=== PATIENT | female | born 1965 | race Caucasian/White ===

== ENCOUNTER 2025-08-04 19:54 | Inpatient (IN) | payer MEDICAID ==
[~2025-08-04] VITALS: Ht 160 cm; Wt 71.8 kg
--- NOTE | 2025-08-04 22:52 | Physician Documentation ---
History of Present Illness ~ Chief Complaint: Bloody Stools Stated Complaint: GI BLEED Time Seen by MD: 22:52 Primary Medical Doctor: ANUP AKINS Mode of Arrival: EMS HPI Patient presents to the emergency room as transfer from [facility]. Reports of melena and hematemesis over the past few days. Patient was found to be significant lead anemic at sending facility therefore 1 unit of blood transfused. No additional bleeding has been appreciated. Patient is not on bl ood thinners. CT scan of the abdomen performed at sending facility was negative for intra-abdominal bleeding however it did show ascites. According to patient this is new onset. Patient drinks heavily. Reports her last drink was five days ago. No signs of withdrawal. Medication Reconciliation Allergies: Coded Allergies: No Known Allergies (Unverified , 08/04/25) Review of Systems ROS All review of systems negative except as per HPI Physical Exam Vital Signs: Temperature: 98.3, Source: Oral, Heart Rate: 81, Respiratory Rate: 16, BP: 167/84, Pulse Oximetry: 98, Weight: 71.820 Oxygen Flow Rate: 1.0 Physical Exam General: Patient is awake, alert, oriented x4 in no acute distress Head: Normocephalic and atraumatic. Eyes: Conjunctival normal. EOMI. PERRL. ENT: Mucous membranes moist. Neck: Supple, trachea is midline. Chest: Clear to auscultation bilaterally without rales, rhonchi, or wheezes. There is no accessory muscle use or retractions. Cardiac: RRR without murmurs, gallops, or rubs. Abd: Soft, positive distention with positive fluid wave and diffuse tenderness to palpation without peritonitis Progress Results/Orders Results/Orders Orders - ROBERTO COLINDRES MD Cbc/Diff (08/04/25 22:52) BMP (08/04/25 22:52) PTT (08/04/25 22:52) Pt Inr (08/04/25 22:52) Type And Screen (08/04/25 22:52) Electrocardiogram (08/04/25 22:52) Nothing By Mouth (08/05/25 Breakfast) Monitor (08/04/25 22:52) Saline Lock (08/04/25 22:52) Completed Orders - ROBERTO COLINDRES MD Urinalysis, Cult If Indicated (08/04/25 22:52) Vital Signs 08/04/25 08/04/25 20:04 20:12 Temp 98.3 Pulse 81 Resp 18 16 B/P (MAP) 167/84 Pulse Ox 98 O2 Flow Rate 1.0 Laboratory Tests Test 08/04/25 20:56 08/04/25 23:07 Urine Specimen Description Cln catch midstream Urine Color Yellow Urine Clarity Clear Urine pH 7.0 Urine Specific [place] <=1.005 Urine Protein Negative Urine Glucose (UA) Negative Urine Ketones Negative Urine Occult Blood Negative Urine Nitrite Negative Urine Bilirubin Negative Urine Urobilinogen 4.0 H Urine Leukocyte Esterase Negative Urine Culture Indicated Not ind Volume Urine Centrifuged 10 ml Urine Comment EKG/XRAY/CT/US/VASC/MRI EKG : Additional Comment EKG interpreted by myself shows time of 2006, rate 80, sinus rhythm, normal axis, no ST changes Medical Decision Making Additional information obtaine: other Findings Patient presents to the emergency room with GI bleed as a transfer. She has received 1 unit of red blood cells. CT scan of abdomen was negative for acute process. We will continue Protonix and consult GI Diff Dx GI Bleed:Consideration: Include: AE fistula, Angiodysplasia, Bleeding diathesis, Blood loss anemia, Carcinoma, Diverticulosis, Diverticulitis, Esophageal varicies, Esophagitis, Gastritis, Gastroenteritis, Inflammatory BD, Al[place] Rosa-Brown syndrome, Meckel's diverticulum, PUD, Other Departure Admitted to Inpatient Unit: yes, to hospitalist Impression: Primary Impression: GI bleed Condition: Guarded Referrals: NO PRIMARY CARE PROVIDER (PCP) Critical Care Note Total Time (mins): 30 Critical Care Note The very real possibility of a deterioration of this patient's condition required the highest level of my preparedness for sudden, emergent intervention. I provided critical care services, which included medication orders, frequent reevaluations of the patient's condition and response to treatment, ordering and reviewing test results, and discussing the case with various consultants. Excludes time spent performing separately billable procedures. The critical care time associated with the care of the patient was 30 minutes not counting procedures Signature Scribe Signature: No scribe Attestation: The note accurately reflects work and decisions made by me.Roberto Colindres MD 08/04/25 23:17 ROBERTO COLINDRES MD Aug 04, 2025 22:52
[2025-08-04 22:59] LABS: LEUKOCYTE ESTERASE ,URINE NEGATIVE (Neg); NITRITES, URINE NEGATIVE (Neg); OCCULT BLOOD,URINE NEGATIVE (Neg)
[2025-08-04 23:04] LABS: UA COLLECTION TYPE CLN CATCH MIDSTREAM
[2025-08-04 23:15] LABS: MEAN PLATELET VOLUME 9.9 FL (7.4-10.4); RED CELL DISTRIBUTION WIDTH 18.4 % (11.5-14.5)
[2025-08-04 23:28] LABS: APTT 33 SECONDS (22-32); INR 1.5 INR
[2025-08-04 23:29] LABS: CREATININE 1.13 MG/DL (0.40-0.90); TOTAL CARBON DIOXIDE 29.0 MMOL/L (24-32); eCRCL 44 ML/MIN; eGFR 49 ML/MIN
[2025-08-04] MEDS ORDERED: dextrose 50%-water 50ml dispensing syringe IV PRN (23:30)
[2025-08-04] MEDS ORDERED: magnesium sulf-water 2g/50mL 50 ML IV PRN (23:30)
[2025-08-04] MEDS ORDERED: ondansetron/PF 4mg/2ml inj IV PRN (23:30)
[2025-08-04] MEDS ORDERED: magnesium sulf-water 4G/100mL 100 ML IV PRN (23:30)
[2025-08-04] MEDS ORDERED: potassium Cl 20 mEq SR tablet PO PRN (23:30)
[2025-08-04] MEDS ORDERED: potassium Cl 40MEQ/1/2NS 520ml 520 ML IV PRN (23:30)
[2025-08-04] MEDS ORDERED: haloperidol lactate 5mg/ml inj IM PRN (23:30)
[2025-08-04] MEDS ORDERED: magnesium Cl slow-release 64mg tablet PO PRN (23:30)
[2025-08-04] MEDS: pantoprazole 40MG/NS 100ML BAG 100 ML IV SCH (23:38)
[2025-08-04] MEDS ORDERED: LOSA-415 PO (23:43)
[2025-08-05] VITALS (21 sets, daily range): BP systolic 89–140; BP diastolic 49–76; PULSE 76–91; RESP 12–20; TEMP 97.8–98.6; O2SAT 90–97
[2025-08-05] MEDS: octreotide inj. 500 MCG in normal saline 100ml IV soln 97.5 ML IV SCH (00:45)
--- NOTE | 2025-08-05 00:54 | HISTORY AND PHYSICAL-Residence ---
History & Physical Providers to CC Resident Creating Document: EMANUEL ELLINGTON RES CC: DEANGELO BUNN MD ~ History of Present Illness Primary Medical Doctor: [facility] Reason for Admit\Complaint: Coffee-ground emesis and black colored stools History of Present Illness 60-year-old female with past medical history of hypertension, alcohol abuse, presented to the ER with chief complaints of coffee-ground emesis and black colored stools for two days. Patient stated two days ago she had multiple episodes of coffee-ground deficits and the 2-3 episodes of black-colored stools. She denies hematochezia/hematemesis. She also noticed abdominal distention for the past one month associated with abdominal discomfort. No history of fever. Never had endoscopy/colonoscopy before. She is also complaining of constipation for the past one day No previous history of hep B/hep C, not on blood thinners, no previous history of any other bleeding episode These complaints patient went to [facility] [place] She received Protonix 80 mg, received 1 unit of blood transfusion for anemia with hemoglobin of 6.7. She is transferred here for GI services Allergies: Coded Allergies: No Known Allergies (Unverified , 08/04/25) Home Medications Home Medications Active Reported Cozaar* (Losartan Potassium) 25 Mg Tablet 1 Tab PO DAILY 30 Days Past Medical History Past Medical History Hypertension Past Surgical History Surgical History Comment None Past Social History Social History Comment Patient drinks four cans of beer syndrome, last alcohol intake was a week ago She was sober for 15 years and then rebounds for alcoholism seven years ago She has smokes one pack of cigarettes a week Denies illicit drug use Independent for ADLs ROS ROS ROS Constitutional: Positive for fatigue increased appetite HEENT: No blurring of the vision, No sore throat, epistaxis, tinnitus Cardiovascular: No chest pain/discomfort, palpitations, syncope. No pedal edema Respiratory: No sob, cough,, hemoptysis Gastrointestinal: History for abdominal pain, coffee-ground emesis, melena, and abdominal distention with jaundice Genitourinary: No frquency, urgency, incontinence, nocturia. No dysuria, hematuria Musculoskeletal: No arthralgia, myalgia Endocrine: No , polydipsia, polyuria. No heat or cold intolerance Neurologic: No headache, vertigo. No weakness, numbness or tingling of extremities Psychiatric: No hallucinations/delusions, no anhedonia, no suicidal ideation\ Hematologic: No bleeding or bruises Reviewed in full. All negative except for pertinent positives in HPI Exam Vitals: Vital Signs Date Time Temp Pulse Resp B/P (MAP) Pulse Ox O2 Delivery O2 Flow Rate FiO2 08/04/25 23:00 82 17 131/73 (92) 93 08/04/25 20:04 98.3 1.0 General: General: Pleasant adult female, AAO x4, appearing pale, not in apparent distress Head: Normocephalic with an atraumatic Eyes: Pupils- 3mm, reacting to light, conjunctiva- icteric Nose and throat: No polyps, septum- normal, no mucosal ulcers Neck: Supple, no lymphadenopathy, no carotid bruit Respiratory: No use of accessory muscles of respiration, decreased bilateral breath sounds in basal areas Cardiac: S1-S2 heard, rythm regular, SM in the aortic area, mitral area Abdomen: Distended, tenderness diffuse, no guarding/rigidity, shifting dullness retirement, engorged veins present, multiple spider nevi present over chest Extremities: no clubbing, no pedal edema, no deformities, peripheral pulses- 2+ Skin: warm and dry, no rash, no purpura Neuro: No focal deficit, gross cranial nerve exam- normal, no tremors Diagnostic Data Last Recorded Lab Results: 08/04/25230608/04/[id number] Diagnostic Data: Laboratory Tests Test 08/04/25 23:07 Prothrombin Time 15.1 SECONDS (9.0-12.0) H INR International Normalized Ratio 1.5 INR Activated Partial Thromboplast Time 33 SECONDS (22-32) H Coagulation Comments Counseling Services Smoking & Tobacco Cessation: 3-10 Minutes (Patient is counseled regarding the harmful effects of smoking including but not limited to [facility] infections, lung cancer, bladder cancer, Symptoms CAT or mMRCExacerbationSmoking statusExposure to other risk factorsInhaler adherence and techniquePhysical activity and exerciseNeed for pulmonary rehabilitationSelf-management skills Breathlessness Written action planNeed for oxygen, NIV, lung volume reduction, palliative approachesVaccinationManagement of comorbiditiesspirometry at least annually) Advance Care Planning Advanced Care plannin - 30 Minutes (Code status is discussed with her and she opted for full code) Additional Plan 60-year-old female with past medical history of hypertension, alcohol abuse, presented to the ER with chief complaints of coffee-ground emesis and black colored stools for two days. For these complaints she went to [facility] at [place], and was diagnosed with cirrhosis with ascites, received IV Protonix 80 mg for GI bleed, 2 g of IV ceftriaxone and received one PRBC transfusion for anemia. Upper GI bleed -differential diagnosis include esophageal varices/alcoholic gastritis/peptic ulcer disease -currently on Protonix at 8 mg/hour, -started on IV octreotide at 50 mics per hour for presumed esophageal varices -we will consult GI in the a.m., monitor for bleeding manifestations and vitals -NPO after 2:00 a.m. Macrocytic anemia s/P 1 PRBC transfusion -H&H 8.3/23.6, MCV-101, RDW 18 -suspect macrocytosis likely secondary to alcohol and increased RDW secondary to iron-deficiency anemia -follow up on iron panel, B12 -due to history of hematemesis, we will do H&H q.6 -plan for PRBC transfusion if hemoglobin is less than seven Cirrhosis- MELD 14, CTP Class C 10 Ascites with portal HTN Unable to exclude SBP -CT abdomen showed hepatomegaly with cirrhosis, moderate ascites -serum bilirubin 2.5, AST/ALT/ALP 158, serum albumin 1.9 -suspect cirrhosis likely secondary to alcohol, -follow up on hepatitis-B and hepatitis-C -plan for diagnostic and therapeutic paracentesis -he does have mild abdominal tenderness with increased WBC of 12.4, empirically started on IV Rocephin 2 g once daily -Plan for lactulose after EGD Hypertension -hold losartan, monitor blood pressures Hypokalemia -potassium 3.3 -potassium replacement per protocol Alcohol abuse -currently no signs of alcohol withdrawal, started on alcohol withdrawal protocol -the patient regarding the harmful effects of home alcohol and she is willing to go for alcohol detox -plan for naltrexone at the time of discharge -substance abuse navigator and social service consultation for further resources like AA Code Status: Full code Line/tube: PIV DVT prophylaxis: SCDs Nutrition: NPO PT: No Prognosis: Guarded Disposition: Continue care in PCU, GI consultation pending Emanuel Ellington MD IM PGY-3 resident Patient was evaluated with the resident using HIPPA compliant AV device Agree with plan as discussed with the resident Deangelo Bunn Date of Service: Aug 05, 2025 Billing Provider: DEANGELO BUNN MD, HARIVARSHA, [facility] Aug 05, 2025 00:54 DEANGELO BUNN MD Aug 05, 2025 02:33
[2025-08-05 00:55] LABS: % IRON SATURATION 35 % (11-46)
[2025-08-05] MEDS: octreotide 100mcg/1 ml ampule SQ ONE (01:10)
[2025-08-05 01:15] LABS: ELLIPTOCYTES 1+; PLATELET ESTIMATE DECREASED
[2025-08-05] MEDS: octreotide 200mcg/ml 5ml vial ONE (02:06)
[2025-08-05] MEDS: CefTRIAXone 2gm/D5W 50ml BAG 50 ML IV SCH (02:19)
[2025-08-05] MEDS: potassium Cl 20 mEq SR tablet PO PRN (03:11)
--- NOTE | 2025-08-05 06:20 | ELECTROCARDIOGRAPH REPORT ---
[facility] Test Date: 2025-08-04 Test Time: 20:07:27 Pat Name: LALA CRAWLEY Department: EMERGENCY ROOM Room: [place] [address] [address] Gender: F Band Booker: ASHWINI : 1965 Requested By: SO CABELLO Order Number: [id number] Reading MD: Dr. KATE Quinonez Measurements Intervals [place] Rate: 80 P: 76 [place]: 155 QRS: 69 QRSD: 114 T: 44 QT: 430 QTc: 497 Interpretive Statements Sinus rhythm Incomplete right bundle branch block Low voltage, precordial leads Borderline prolonged QT interval Electronically Signed On 08-06-2025 16:51:[address] KATE Quinonez Please click the below link to view image of tracing.
[2025-08-05 06:40] LABS: MEAN PLATELET VOLUME 9.6 FL (7.4-10.4); RED CELL DISTRIBUTION WIDTH 18.5 % (11.5-14.5)
[2025-08-05 06:41] LABS: APTT 33 SECONDS (22-32); INR 1.6 INR
[2025-08-05 06:54] LABS: CREATININE 1.25 MG/DL (0.40-0.90); PHOSPHORUS 4.1 MG/DL (2.3-4.5); TOTAL CARBON DIOXIDE 26.0 MMOL/L (24-32); eCRCL 40 ML/MIN; eGFR 44 ML/MIN
[2025-08-05 06:55] LABS: LACTATE DEHYDROGENASE 172 U/L (81-234)
[2025-08-05] MEDS: docusate sod 100mg capsule PO SCH (07:03)
[2025-08-05] MEDS: K and/or MAG REPLACEMENT MC SCH (07:04)
[2025-08-05] MEDS: thiamine 100mg/ml 2ml inj. IV SCH (07:38)
[2025-08-05] MEDS: folic acid 1mg/0.2ml inj IV SCH (07:39)
--- NOTE | 2025-08-05 11:17 | RADIOLOGY REPORT ---
PROCEDURE: ULTRASOUND GUIDED PARACENTESIS HISTORY: 60 Female requiring paracentesis. TECHNIQUE: The risks and benefits of the procedure including but not limited to bleeding, infection and injury to abdominal organs were explained to the patient and written informed consent was obtained. IMPRESSION: small volume ascites.
[2025-08-05] MEDS ORDERED: midazolam 1 mg/ML 2ml injection ONE (11:43)
[2025-08-05] MEDS ORDERED: fentaNYL/PF 50MCG/1 ML 2ML syringe ONE (11:43)
[2025-08-05] MEDS ORDERED: propofol inj 20 ML IV ONE (11:51)
[2025-08-05 13:30] LABS: MEAN PLATELET VOLUME 9.5 FL (7.4-10.4); RED CELL DISTRIBUTION WIDTH 18.8 % (11.5-14.5)
--- NOTE | 2025-08-05 17:32 | PROGRESS NOTE ---
Daily Progress Note Providers to CC ~ Antibiotic Timeout Antibiotic Ordered?: No Subjective No new complaints, patient is seen resting comfortably. Objective Vital Signs Date Time Temp Pulse Resp B/P (MAP) Pulse Ox O2 Delivery O2 Flow Rate FiO2 08/05/25 15:00 98.6 80 14 120/67 (84) 93 Room Air 08/05/25 13:45 1.0 Result Diagram: 08/05/25 1320 08/05/25 0617 Awake alert oriented HEENT normocephalic , atraumatic , EOMI Neck supple, no JVD Chest CTA , No wheezes crackles or rhonchi Heart RRR, Abdomen, soft, tender in left abdomen Extremities no C/C/E Non focal Coagulation Studies Laboratory Tests Test 08/05/25 06:17 Prothrombin Time 15.6 SECONDS (9.0-12.0) H INR International Normalized Ratio 1.6 INR Activated Partial Thromboplast Time 33 SECONDS (22-32) H Coagulation Comments Other Results Medications reviewed Problem\Assessment\Plan 60 year old female presented with history of hypertension, alcohol abuse, presented to the ER with chief complaints of coffee-ground emesis and black colored stools for two days. # GI Bleed : Patient underwent an EGD which showed hypertensive gastropathy. Continue protonix , will DC octreotide # Acute blood loss anemia : Patient went to [facility] and had a Hb of 6.7 and received a unit of PRBC # Cirrhosis Monitor for disease progression # Chronic alcoholism: Monitor for withdrawals. # Anemia : Monitor H/H # HTN : Losartan on hold , continue monitor # Code status : Patient is a full code. Date of Service: Aug 05, 2025 Billing Provider: VARSHA MCKEE MD Common Visit Codes: 28594-[id number] INP/OBS CARE(HIGH) VARSHA MCKEE MD Aug 05, 2025 17:32
[2025-08-05 18:30] LABS: MEAN PLATELET VOLUME 9.7 FL (7.4-10.4); RED CELL DISTRIBUTION WIDTH 18.2 % (11.5-14.5)
[2025-08-05] MEDS: HYDROcodone/acetaminophen 5mg/325mg tablet PO PRN (20:47)
[2025-08-06 02:00] VITALS: BP 122/55; PULSE 67; RESP 16; TEMP 97.8; O2SAT 94
[2025-08-06 04:37] LABS: MEAN PLATELET VOLUME 9.7 FL (7.4-10.4); RED CELL DISTRIBUTION WIDTH 17.9 % (11.5-14.5)
[2025-08-06 04:50] LABS: APTT 34 SECONDS (22-32); INR 1.7 INR
[2025-08-06 04:52] LABS: CREATININE 1.37 MG/DL (0.40-0.90); PHOSPHORUS 3.5 MG/DL (2.3-4.5); TOTAL CARBON DIOXIDE 27.3 MMOL/L (24-32); eCRCL 37 ML/MIN; eGFR 39 ML/MIN
[2025-08-06 06:00] VITALS: BP 132/65; PULSE 91; RESP 22; TEMP 98.2; O2SAT 93
[2025-08-06 08:00] VITALS: RESP 16; O2SAT 94
[2025-08-06 09:13] LABS: HBSAG SCREEN Negative (Negative); HEPATITIS C VIRUS ANTIBODY Non Reactive (Non Reactive)
[2025-08-06 10:45] VITALS: RESP 14; O2SAT 93
[2025-08-06 11:00] VITALS: BP 133/63; PULSE 89; RESP 22; TEMP 98.1; O2SAT 91
[2025-08-06] MEDS ORDERED: PANT-47 PO (11:24)
--- NOTE | 2025-08-06 12:02 | DISCHARGE SUMMARY ---
Discharge Summary Providers to CC ~ Discharge Summary Admission Diagnosis: GI BLEED, ANEMIA Hospital Course DATE OF ADMISSION: 08/05/2025 DATE OF DISCHARGE:08/06/2025 Discharge Diagnosis\Comment: Portal hypertensive gastropathy Operations\Procedures: EGD Consultants: Dr. Alanis Complications: None Condition on DC: Stable New Medications: Pantoprazole Sodium (PROTONIX tablet) 40 Mg Tablet.dr 40 MG PO DAILY for 30 Days, #30 TAB.SR Continued Medications: Losartan Potassium* (Cozaar*) 25 Mg Tablet 1 TAB PO DAILY for 30 Days, #30 TAB Discharge Summary: Reason for admission : 60 year old female with history of hypertension, alcohol abuse, presented to the ER with chief complaints of coffee-ground emesis and black colored stools for two days. Please refer to admission H $ P for further details. Hospital course : Patient admitted on the monitored floor and her hospital course is as follows. # GI Bleed : Patient underwent an EGD which showed hypertensive gastropathy which was biopsied by report . Patient treated with IV protonix and octreotide. Octreotide discontinued. Patient has had no further bleeding. H&H has remained stable. She has been discharged home on p.o. Protonix and is advised to follow up with PCP and GI. # Acute blood loss anemia : Patient went to [facility] and had a Hb of 6.7 and received a unit of PRBC . H and H monitored # Cirrhosis Monitored for disease progression. Outpatient follow up recommended. She was awake alert oriented during this admission. # Chronic alcoholism: No withdrawals reported. # HTN : Losartan was withheld. Blood pressures were monitored. # Code status : Patient kept as a full code as per her request.. Discharge exam: Examined the patient on the day of discharge. Awake alert oriented HEENT normocephalic , atraumatic , EOMI Neck supple, no JVD Chest CTA , No wheezes crackles or rhonchi Heart RRR, Abdomen, soft, tender in left abdomen Extremities no C/C/E Non focal Disposition: Home *Problems/Diagnosis: (1) GI bleed Status: Acute Total Time Spent on D/C: > 30 Minutes Date of Service: Aug 06, 2025 Billing Provider: VARSHA MCKEE MD Common Visit Codes: 04090-KSF/OBS DISCH DAY >30min VARSHA MCKEE MD Aug 06, 2025 12:01
--- NOTE | 2025-08-09 07:39 | CONSULTATION ---
DATE OF CONSULTATION: 08/05/2025 DICTATING PHYSICIAN: Samir Guillermo MD GASTROENTEROLOGY CONSULTATION REPORT REASON FOR CONSULTATION: Upper GI tract bleeding. HISTORY OF PRESENT ILLNESS: Patient is a 60-year-old lady brought into the Emergency Department from [facility] in [place] because of upper GI tract bleeding. Apparently, she went to the emergency department over there. Hemoglobin was in the 6 g range and she was given a unit of packed red blood cells and she was brought over here. She has had multiple bouts of melena and hematemesis. She does have a history of alcohol use. Last drink was about a week ago. She apparently has a history of liver cirrhosis, I do not know the degree of cirrhosis and status of portal hypertension at this time. She is hemodynamically stable. Upon admission here, her hemoglobin was 8 and remained stable at 8. She does not complain of any significant symptoms at this time. PAST MEDICAL HISTORY: Hypertension. FAMILY HISTORY/PERSONAL HISTORY: Noncontributory. REVIEW OF SYSTEMS: A 12-point review of systems essentially same as history of present illness. PHYSICAL EXAMINATION: GENERAL: On physical exam, she is awake, alert, and appears to be in no apparent distress, friendly and cooperative. VITAL SIGNS: Normal. NECK: Supple. No thyromegaly. No JVD. No significant lymphadenopathy. HEENT: Oral cavity within normal limits. HEART AND LUNGS: Normal. ABDOMEN: Soft, nontender. No masses. No organomegaly. Bowel sounds are present. IMPRESSION: Upper GI tract bleeding. The pattern is more suggestive of acid peptic disease rather than variceal bleeding. The patient does have underlying liver cirrhosis. She is hemodynamically stable at this time. RECOMMENDATIONS: Continue IV Protonix therapy. Diagnostic endoscopy, if necessary therapeutic intervention will be performed. We will address the liver disease as and how we go along and after deciding the degree of liver disease including necessity for beta-cristy therapy for variceal bleed prophylaxis depending on the EGD findings as well as dietary therapy and ongoing followup. The patient will need to be counseled regarding alcohol intake. We will see her for followup in the office upon discharge as well. Discussed with the hospitalist. Samir Guillermo MD TID: [id number] RECEIPT: [id number] ÓSCAR/WAYLON MTDD
== END 2025-08-06 15:09 | disposition home or self-care (01) | DRG 253 ==
LOC: ER 19:55 → ED HOLD 23:34 → EDBEDREQ 08-05 02:39 → PCU 3S 08-05 03:00
PROVIDERS: ADMIT Internal Medicine; ATTEND Internal Medicine
PROC: 0DB68ZX Excision of Stomach, Via Natural or Artificial Opening Endoscopic, Diagnostic (ICD-10-PCS; principal; 2025-08-05 11:37)
DX: K92.2 Gastrointestinal hemorrhage, unspecified (principal); R18.8 Other ascites; R16.0 Hepatomegaly, not elsewhere classified; K74.60 Unspecified cirrhosis of liver; I10 Essential (primary) hypertension; F10.10 Alcohol abuse, uncomplicated; K76.6 Portal hypertension; K31.9 Disease of stomach and duodenum, unspecified; D62 Acute posthemorrhagic anemia; F17.210 Nicotine dependence, cigarettes, uncomplicated; K31.89 Other diseases of stomach and duodenum; E87.6 Hypokalemia; Y90.9 Presence of alcohol in blood, level not specified; Z79.899 Other long term (current) drug therapy
CPT/HCPCS: 36415; 43239; 76705; 80048; 80053; 80076; 81003; 82607; 82728; 82948; 83540; 83550; 83615; 83735; 84100; 85008; 85025; 85027; 85610; 85730; 86803; 86885; 86900; 86901; 87081; 87340; 87522; 93005; 99291; A4615; C1729; G0378; J0696; J2250; J2354; J2470; J2704; J3010; J3411; J3490